=== PATIENT | female | born 1955 | race Caucasian/White ===

== ENCOUNTER 2019-05-28 15:47 | Outpatient (CLI) | payer MEDICARE, OTHER, SELFPAY ==
--- NOTE | 2019-05-28 16:30 | USCV_ITS ---
Marah Benites Age: 64 Gender: F : 1955 Exam Date: 05/28/2019 15:56 Ordering Phys: Bryce Wick DPM Technologist: Renata Sena Exam Location: [facility] Indication: DECREASED PULSES IN FEET RIGHT LEFT Brachial 131.00 mmHg Brachial 129.00 mmHg Pressure (mmHg) Waveform Pressure (mmHg) Waveform 143.00 Above Knee 147.00 148.00 Below Knee 153.00 173.00 APPLICATION DEFENSE MANAGER 170.00 166.00 DPA 123.00 1.32 Ankle/Brachial Index 1.30 74.00 Pre-Exercise Toe Pressure 63.00 0.56 Pre-Exercise Toe/Brachial Index 0.48 FINDINGS Supernormal resting ABIs bilaterally Diminished resting TBIs bilaterally CONCLUSIONS Features of mild to moderate peripheral arterial disease, possibly involving the distal vessels bilaterally. Dr Monisha Dowell MD [facility] (Electronically Signed) Final Date: 28 May 2019 20:31 S
== END 2019-05-28 15:48 | disposition home or self-care (01) ==
LOC: RAD 15:52
PROVIDERS: Family Provider Family Medicine; PCP Plastic Surgery; Visit Provider Podiatrist Foot & Ankle Surgery
DX: R09.89 Other specified symptoms and signs involving the circulatory and respiratory systems (principal)
CPT/HCPCS: 93923

== ENCOUNTER 2020-06-13 06:00 | Outpatient (RCR) | payer MEDICARE, OTHER, SELFPAY | END 2020-06-26 23:59 | disposition home or self-care (01) | LOC: SPT 06:00 | PROVIDERS: Family Provider Family Medicine; Referring Provider Physician Assistant Surgical; Visit Provider Physician Assistant Surgical | DX: M25.512 Pain in left shoulder (principal); M19.012 Primary osteoarthritis, left shoulder | CPT/HCPCS: 97110; 97162 ==

== ENCOUNTER 2020-06-27 06:00 | Outpatient (RCR) | payer MEDICARE, OTHER, SELFPAY | END 2020-07-07 23:00 | disposition home or self-care (01) | LOC: SPT 06:00 | PROVIDERS: Family Provider Family Medicine; Referring Provider Physician Assistant Surgical; Visit Provider Physician Assistant Surgical | DX: M75.102 Unspecified rotator cuff tear or rupture of left shoulder, not specified as traumatic (principal); M19.012 Primary osteoarthritis, left shoulder | CPT/HCPCS: 97110 ==

== ENCOUNTER → 2021-06-08 13:51 | Outpatient (BNVA) | payer MEDICARE, OTHER, SELFPAY | PROVIDERS: Family Provider Family Medicine; PCP Nurse Practitioner Family; Visit Provider Podiatrist Foot & Ankle Surgery | DX: M19.072 Primary osteoarthritis, left ankle and foot (principal) | CPT/HCPCS: 73630 ==

== ENCOUNTER → 2021-07-19 10:40 | Outpatient (BNVA) | payer MEDICARE, OTHER, SELFPAY | PROVIDERS: Family Provider Family Medicine; PCP Nurse Practitioner Family; Visit Provider Nurse Practitioner Family | DX: Z20.822 Contact with and (suspected) exposure to COVID-19 (principal) | CPT/HCPCS: 87635 ==

== ENCOUNTER → 2021-08-21 14:12 | Outpatient (BNVA) | payer MEDICARE, OTHER, SELFPAY | PROVIDERS: Family Provider Family Medicine; PCP Nurse Practitioner Family; Visit Provider Podiatrist Foot & Ankle Surgery | DX: S92.351A Displaced fracture of fifth metatarsal bone, right foot, initial encounter for closed fracture (principal); X58.XXXA Exposure to other specified factors, initial encounter; Z46.89 Encounter for fitting and adjustment of other specified devices; S92.351D Displaced fracture of fifth metatarsal bone, right foot, subsequent encounter for fracture with routine healing; X58.XXXD Exposure to other specified factors, subsequent encounter | CPT/HCPCS: 73630; 97760; L4361 ==

== ENCOUNTER 2021-08-21 15:14 | Outpatient (CLI) | payer MEDICARE, OTHER, SELFPAY | END 2021-08-21 15:15 | disposition home or self-care (01) | LOC: SPT 15:15 | PROVIDERS: Family Provider Family Medicine; PCP Nurse Practitioner Family; Visit Provider Podiatrist Foot & Ankle Surgery | DX: Z46.89 Encounter for fitting and adjustment of other specified devices (principal); S92.351D Displaced fracture of fifth metatarsal bone, right foot, subsequent encounter for fracture with routine healing; X58.XXXD Exposure to other specified factors, subsequent encounter | CPT/HCPCS: 97760; L4361 ==

== ENCOUNTER → 2021-09-12 09:11 | Outpatient (BNVA) | payer MEDICARE, OTHER, SELFPAY | PROVIDERS: Family Provider Family Medicine; PCP Nurse Practitioner Family; Visit Provider Podiatrist Foot & Ankle Surgery | DX: M21.612 Bunion of left foot (principal); S92.354A Nondisplaced fracture of fifth metatarsal bone, right foot, initial encounter for closed fracture; W19.XXXA Unspecified fall, initial encounter; Z87.891 Personal history of nicotine dependence | CPT/HCPCS: 73630; 99213; 99214 ==

== ENCOUNTER → 2021-11-01 09:35 | Outpatient (BNVA) | payer MEDICARE, OTHER, SELFPAY | PROVIDERS: Family Provider Family Medicine; PCP Nurse Practitioner Family; Visit Provider Podiatrist Foot & Ankle Surgery | DX: S92.354A Nondisplaced fracture of fifth metatarsal bone, right foot, initial encounter for closed fracture (principal); W19.XXXA Unspecified fall, initial encounter; M21.612 Bunion of left foot; M79.672 Pain in left foot | CPT/HCPCS: 73630; 99214 ==

== ENCOUNTER → 2022-04-09 08:44 | Outpatient (BNVA) | payer MEDICARE, OTHER, SELFPAY | PROVIDERS: Family Provider Family Medicine; PCP Nurse Practitioner Family; Visit Provider Family Medicine | DX: I10 Essential (primary) hypertension (principal) | CPT/HCPCS: 80053; 80061; 85025 ==

== ENCOUNTER 2022-04-23 10:51 | Outpatient (CLI) | payer MEDICARE, OTHER, SELFPAY ==
--- NOTE | 2022-04-23 11:49 | XR_ITS ---
WS: [id number] XR thoracic spine 3V* [id number] REASON FOR EXAM: progressing right radicular pain T11 - L2 FINDINGS: Severe S-shaped thoracolumbar scoliosis. Thoracic spine convex right. Lumbar spine convex left. Thoracic and lumbar curvatures approximate 80 degrees. Leeds of the thoracic curve at T8. Leeds of the lumbar curve at L3. There are no anomalous vertebrae. Disc spaces are narrowed on the concave side of the scoliotic curves. XR/XR thoracic spine 3V* [id number] IMPRESSION: Severe thoracolumbar scoliosis and degenerative spondylosis.
--- NOTE | 2022-04-23 11:49 | XR_ITS ---
WS: [id number] XR lumbar spine 2-3V* [id number] REASON FOR EXAM: progressive right radicular pain T12 - L2 FINDINGS: Severe rotatory scoliosis of the lumbar spine part of the thoracolumbar scoliosis described on the th oracic spine examination. No significant vertebral body abnormality. Joint space narrowing along the concavity of the lumbar curvature with vertebral body osteophytosis. XR/XR lumbar spine 2-3V* [id number] IMPRESSION: Severe rotatory scoliosis of the lumbar spine as part of the severe thoracolumb ar scoliosis.
== END 2022-04-23 10:52 | disposition home or self-care (01) ==
LOC: RAD 10:54
PROVIDERS: Family Provider Family Medicine; PCP Family Medicine; Visit Provider Family Medicine
DX: M41.85 Other forms of scoliosis, thoracolumbar region (principal); M47.814 Spondylosis without myelopathy or radiculopathy, thoracic region
CPT/HCPCS: 72072; 72100

== ENCOUNTER 2022-05-04 09:17 | Emergency (ER) | payer MEDICARE, OTHER, SELFPAY ==
[2022-05-04 09:57] VITALS: BP 138/78; PULSE 60; RESP 12; TEMP 36.8; O2SAT 96; BMI 23.9
--- NOTE | 2022-05-04 10:20 | XR_ITS ---
WS: [id number] Left knee, 3 views, 05/04/2022 Clinical Data: acute left knee pain Comparison: None. Findings: No fractures or dislocations are seen. There is medial joint compartment narrowing. There is a small calcification and spur adjacent to the medial tibial plateau. The posterior patella shows spurring. T he patella is intact. The soft tissues are unremarkable. XR/XR knee LT 3V* [id number] Impression: Mild osteoarthritis of the left knee Kellgren-Usman Classification: grade 1 (doubtful): doubtful joint space narr owing and possible osteophytic lipping
--- NOTE | 2022-05-04 10:54 | ED_ITS ---
HPI - Extremity Problem General: Chief complaint: Extremity Injury, Lower Stated complaint: left knee injury Time Seen by Provider: 05/04/22 10:52 Source: patient Mode of arrival: ambulatory Limitations: no limitations History of Present Illness: 67-year-old female presents to the ER today for left knee pain x24 hours. Patient reports she was playing pickle ball yesterday when she planted and felt a pop. Patient reports she had immediate pain. She reports it is very tender to walk and bend her knee. She reports mild swelling. She is taking diclofenac at home. She did elevate and ice her knee last night. Patient reports a history of an ACL tear of the right knee but no injuries of the left knee prior to this. Review of Systems General: Reports: 10 or more systems reviewed and unremarkable except in HPI and below PFSH ED PFSH: Medical History Bunion of right foot Hot flashes HTN (hypertension) IBS (irritable bowel syndrome) Neuropathy of both feet Restless leg syndrome Scoliosis Social History Smoking and tobacco status: former smoker Alcohol intake: never Physical Exam Const: COMMON NORMALS: no acute distress, average body habitus, patient oriented x3, no limitations, healthy appearing, alert and well nourished Resp: COMMON NORMALS: normal respiratory effort EFFORT & INSPECTION: Yes able to speak in complete sentences Cardio: COMMON NORMALS: regular rate and regular rhythm RATE: regular rate RHYTHM: regular rhythm Extremity: NARRATIVE EXTREMITY EXAM: Patient is noted to be walking with a limping gait, favoring the left leg. Left knee exam is positive for medial joint line tenderness. There is also swelling noted of this area which is mild. Knee otherwise appears stable. Neuro: COMMON NORMALS: patient oriented x3 SENSORIUM/ORIENTATION: Yes alert Psych: COMMON NORMALS: mental status grossly normal, Normal thought process present and cooperative THOUGHT PROCESS: Normal thought process present Skin: COMMON NORMALS: no rashes or lesions noted and no wounds GENERAL SKIN EXAM: no rashes or lesions noted Course ED course: Patient presents to the ER for left knee pain x24 hours. This occurred while playing pickle ball yesterday. We will get an x-ray at this time. No prior injuries reported. Vital Signs: Vital signs: Vital Signs Temperature 98.2 F 05/04/22 09:57 Pulse Rate 53 L 05/04/22 11:14 Respiratory Rate 16 05/04/22 11:14 Blood Pressure 161/82 05/04/22 11:14 Pulse Oximetry 97 05/04/22 11:14 Oxygen Delivery Me thod 05/04/22 09:57 MDM - Extremity (Nontraumatic) Medical Decision Making X-ray shows mild osteoarthritis of the left knee. Patient does have medial joint line tenderness and some swelling so I cannot rule out a meniscal tear or other tendon/ligament injuries. I would recommend patient get an elastic knee brace and wear that. Rest recommended. Ice elevation and ice recommended. Continue diclofenac for pain. Follow-up with PCP next week if no improvement in symptoms to discuss advanced imaging. Patient verbalized understanding and was in agreement with the treatment plan. Lab Data Radiology Impressions Knee X-Ray 05/04/22 10:20 Impression: Mild osteoarthritis of the left knee Kellgren-Usman Classification: grade 1 (doubtful): doubtful joint space narrowing and possible osteophytic lipping Critical Care Time Critical Care Time: Critical Care Time: No Discharge Plan Discharge Patient Disposition: Home Clinical Impression: Acute pain of left knee Condition: Stable Prescriptions: No Action irbesartan 75 mg tablet 75 mg PO DAILY Qty: 90 3RF metoprolol tartrate 50 mg tablet 50 mg PO DAILY Qty: 90 3RF Rx Instructions: recommend trial of 1/2 twice daily instead of 1 once daily next several weeks (DME) Cam boot to right See Rx Instructions .Route .MEDSUPPLY Qty: 1 0RF Rx Instructions: As directed atorvastatin 10 mg tablet 10 mg PO DAILY Qty: 90 3RF duloxetine 30 mg capsule,delayed release(DR/EC) See Rx Instructions .ROUTE .COMPLEX Qty: 90 3RF Dose Instruction: TAKE 1 CAPSULE BY MOUTH EVERY DAY Rx Instructions: TAKE 1 CAPSULE BY MOUTH EVERY DAY estradiol 0.5 mg tablet 0.5 mg PO DAILY Qty: 90 3RF Rx Instructions: off 5 days; repeat cycle medroxyprogesterone 2.5 mg tablet 2.5 mg PO DAILY Qty: 90 3RF omeprazole 20 mg capsule,delayed release(DR/EC) 20 mg PO DAILY Qty: 90 3RF pregabalin [Lyrica] 50 mg capsule 50 mg PO TID 90 Days Qty: 270 1RF diclofenac sodium 75 mg tablet,delayed release (DR/EC) 75 mg PO BID PRN (Reason: pain) Qty: 120 1RF Discharge Orders: Discharge ED (Routine); Ordered 05/04/22 Ordered By: Earnestine Armando Referrals: Sarah Granger MD [Primary Care Provider] - Discharge Diet: Usual diet Discharge Activity: Increase activity as tolerated Patient Instructions: Opioid Safety, Pain Management Activity Restrictions/Additional Instructions: Recommend rest, ice, elevation. Take anti-inflammatory as discussed. Follow-up with PCP in 3 to 5 days for possible advanced imaging. Increase activity as tolerated. Return to the ER with new or worsening symptoms. Coding Level of Care Code ED Sewing Department Supervisor for Brigette Rodríguez
[2022-05-04 11:14] VITALS: BP 161/82; PULSE 53; RESP 16; O2SAT 97
== END 2022-05-04 11:19 | disposition home or self-care (01) ==
PROVIDERS: Emergency Provider Physician Assistant; PCP Family Medicine
DX: M25.562 Pain in left knee (principal); M17.12 Unilateral primary osteoarthritis, left knee
CPT/HCPCS: 73562; 99283

== ENCOUNTER 2022-05-28 07:43 | Outpatient (CLI) | payer MEDICARE, OTHER, SELFPAY ==
--- NOTE | 2022-05-28 08:00 | MR_ITS ---
WS: [id number] MRI LEFT KNEE HISTORY: Twisting injury. Evaluate for meniscal tear. COMPARISON: Radiographs 05/04/2022 Anterior cruciate ligament: Mild increased signal and mucoid degeneration in the ACL. Posterior cruciate ligament: Intact. Medial collateral ligament: Moderate amount of fluid along the medial collateral ligament but there i s no tear. Posterior lateral corner structures: Intact. Medial menisci: Abnormal signal in the free edge with moderate fraying along the articular surfaces o f the posterior horn. Posterior meniscus is smaller caliber than the anterior horn which is abnormal. Abnormal signal also along the free edge extending to both the superior and inferior surfaces. Abnor mal signal in the meniscal root consistent with a tear. Lateral meniscus: Mild blunting of the free edges of both anterior and posterior horns. Suspect focal tears. Extensor mechanism: Distal quadriceps tendon and patellar tendons are intact. Fluid and soft tissue: Small suprapatellar joint effusion. There is edema in the soft tissues posteri or to the medial femoral condyle which is contiguous with a Menendez's cyst. Menendez's cyst and contiguous soft tissue edema extends over length of 6.8 cm. Osseous and articular structures: Patellofemoral compartment: Moderate chondromalacia patellar cartilage. No marrow edema. Medial compartment: Mild narrowing medial compartment. There is moderate chondromalacia along the fem oral condyle and the tibial plateau. No fracture or marrow edema. Lateral compartment: Mild chondromalacia. Very minimal narrowing of the joint spaces. MR/MR knee LT wo con* [id number] IMPRESSION: 1. Complex tear posterior horn medial meniscus. Tear and abnormal signal invol ves the free edge, superior and inferior articular surfaces and also towards th e meniscal root. Complex meniscal tear. 2. Mild blunting of both the anterior and posterior free edges of the lateral menisci. 3. Large Menendez's cyst. There is additional fluid in the soft tissues posterior to the medial femoral condyle associated with the Menendez's cyst. There may be a partial rupture of the Menendez's cyst due to infiltration of the soft tissues wi th edema. 4. Small joint effusion. 5. Moderate chondromalacia patellofemoral compartment. 6. Moderate chondromalacia medial compartment with mild narrowing of the joint . 7. Mild chondromalacia lateral compartment. 8. Mucoid degeneration ACL.
== END 2022-05-28 07:44 | disposition home or self-care (01) ==
LOC: RAD 07:43
PROVIDERS: PCP Family Medicine; Visit Provider Family Medicine
DX: S83.232A Complex tear of medial meniscus, current injury, left knee, initial encounter (principal); M71.22 Synovial cyst of popliteal space [Baker], left knee; M25.462 Effusion, left knee; M94.262 Chondromalacia, left knee; X58.XXXA Exposure to other specified factors, initial encounter
CPT/HCPCS: 73721

== ENCOUNTER → 2022-06-04 08:27 | Outpatient (BNVA) | payer MEDICARE, OTHER, SELFPAY | PROVIDERS: PCP Family Medicine; Referring Provider Family Medicine; Visit Provider Specialist | DX: S89.92XA Unspecified injury of left lower leg, initial encounter (principal); X50.9XXA Other and unspecified overexertion or strenuous movements or postures, initial encounter; Y93.69 Activity, other involving other sports and athletics played as a team or group; M23.322 Other meniscus derangements, posterior horn of medial meniscus, left knee | CPT/HCPCS: 20610; 73560; 73565; 99204; J1100; J2795; J3301 ==

== ENCOUNTER → 2022-07-30 07:55 | Outpatient (BNVA) | payer MEDICARE, OTHER, SELFPAY | PROVIDERS: PCP Family Medicine; Visit Provider Specialist | DX: M25.562 Pain in left knee (principal) | CPT/HCPCS: 99213 ==

== ENCOUNTER → 2022-09-05 08:39 | Outpatient (BNVA) | payer MEDICARE, OTHER, SELFPAY | PROVIDERS: PCP Family Medicine; Visit Provider Specialist | DX: M17.12 Unilateral primary osteoarthritis, left knee (principal) | CPT/HCPCS: 20610; 99213; J7327 ==

== ENCOUNTER → 2022-09-10 08:13 | Outpatient (BNVA) | payer MEDICARE, OTHER, SELFPAY | PROVIDERS: PCP Family Medicine; Visit Provider Specialist | DX: M65.341 Trigger finger, right ring finger (principal) | CPT/HCPCS: 73130; 99214 ==

== ENCOUNTER 2022-09-11 08:08 | Day surgery (SDC) | payer MEDICARE, OTHER, SELFPAY ==
[2022-09-10 09:29] VITALS: BMI 23.9
[2022-09-11] VITALS (7 sets, daily range): BP systolic 126–168; BP diastolic 69–93; PULSE 51–60; RESP 14–16; TEMP 36.1–36.6; O2SAT 96–100
[2022-09-11] MEDS: CELEcoxib 200 mg Capsule 400 MG PO (09:09)
[2022-09-11] MEDS: acetaminophen 1,000 MG/100 ML PIGGYBACK 400 MG IV (09:09)
[2022-09-11] MEDS: sodium chloride 0.9% 1,000 ML 30 ML IV (09:10)
--- NOTE | 2022-09-11 11:21 | W.PM.OPSUD ---
Surgery/Procedure H&P Update DATE OF PROCEDURE: September 11, 2022 DATE H&P PERFORMED: 09/05/22 H&P UPDATE INFORMATION: I have reviewed H&P completed within last 30 days, I have examined patient prior to procedure, No changes to prior documentation and H&P is in [facility] [place] [facility] EMR on date indicated PREOP DIAGNOSIS: Right ring finger triggering PLANNED PROCEDURE: Operation Date: 09/11/22 09:40 Proposed Procedures p RIGHT RING FINGER TRIGGER FINGER RELEASE [id number],M65.30(Right) - Bela Martinez MD Related Problem List Diagnoses (1) Trigger ring finger of right hand:
--- NOTE | 2022-09-11 12:16 | PM.OP ---
Operative Report Date of procedure: September 11, 2022 Pre-op diagnosis: Right ring finger triggering Post-op diagnosis: Right ring finger triggering Post-op findings: Inflammation right flexor tendons ring finger Procedure done: Right ring finger trigger finger release Specimens removed/disposition: None Surgeon: Bela Martinez Foot Press Operator: None Anesthesia: MAC (With local anesthetic, bupivacaine plain, ASA 2) Estimated blood loss (mL): 1 Tourniquet time (min): 16 (At 250 mmHg) IV fluids (mL): 700 Urine output (mL): 0 (No Gaspar) Complications: None Findings: Thickened A1 mira with slight abrasion to the tendons Condition: stable Disposition: PACU (Then return to same-day surgery for discharge to home) Brief History: This 67-year-old woman presented with complaints of triggering in her right ring finger. The hand was not painful for her, but she did describe frequent triggering which was painful. She stated that she had to straighten the finger every morning, and it would lock up throughout the day. Gripping items caused it to trigger as well. This had been present for several months and was worsening. The patient wished to proceed with operative interventions. Risks and complications were discussed with her in the office, and consents were signed. Procedure: Patient was brought to the operating theater. She was placed on the operating room table. IV sedation was given, and local anesthetic was administered in the form of bupivacaine plain. Patient tolerated it well. The patient asked to have no operative antibiotics, and there was no reason to administer a prophylactic antibiotic for this procedure. A tourniquet was placed high on the arm and was elevated following exsanguination of the arm. Tourniquet time was 16 minutes at 250 mmHg. Surgical pause was performed prior to commencement of the surgical procedure. At the time of the surgical pause we identified the site and side of surgery. We also identified the patient's identity and appropriate administration of IV antibiotics. Following the surgical pause, an incision was made along the distal palmar crease beneath the ring finger. Dissection continued through the skin to the subcutaneous tissues using a scalpel. Blunt dissection was then utilized to spread soft tissues and allow access to the A1 mira. It was then incised longitudinally and sharply using a knife. This was accomplished without difficulty and atraumatically. Once the A1 mira was released, tendons were brought up out of the wound and evaluated. There were no gross masses on the tendons. Tendons were returned to normal position. We then irrigated the wound and subsequently closed it with 3-0 nylon with an interrupted mattress type suture. Following closure of the wound, the wound was injected with 3 mL of bupivacaine into the subcutaneous tissues as a local anesthetic. Sterile dressing was then placed consisting of Dermabond, OpSite, fluffed fluffs, sterile soft roll, and an Jose wrap. The patient was returned to recovery in satisfactory condition. She will be discharged home to follow-up with me in the office. There were no complications and no specimens. Related Problem List Diagnoses (1) Trigger ring finger of right hand:
--- NOTE | 2022-09-11 13:02 | P.ANESASSM_ITS ---
Pre-Anesthetic Assessment Height/Weight: Height 1.6 m Weight 61.235 kg Temp Pulse Resp BP Pulse Ox O2 Del Method O2 Flow Rate 97.7 F 54 L 16 152/91 97 Room Air 6 09/11/22 12:34 09/11/22 12:34 09/11/22 12:34 09/11/22 12:34 09/11/22 12:34 09/11/22 12:34 09/11/22 12:15 Preop Diagnosis: Right ring finger triggering Operation Date: 09/11/22 09:40 Proposed Procedures p RIGHT RING FINGER TRIGGER FINGER RELEASE [id number],M65.30(Right) - Bela Martinez MD Familial anesthetic complications: none Was Beta Reg taken within 24 hours: N/A Was Clonidine taken within 24 hours: N/A Last intake: Intake Last Liquid Date 09/10/22 Last Liquid Time 20:00 Last Solid Date 09/10/22 Last Solid Time 20:00 Social No alcohol and No tobacco Exam alert, oriented x 3, clear to auscultation bilaterally and regular rate & rhythm Airway Submandibular: within normal limits Cervical ROM: within normal limits Mallampati: Class II Dentition: full CV/HEM Hypertension GI Gastroesophageal Reflux Disease Metabolic Hyperlipidemia [facility] [place] Osteoarthritis/DJD Neuropsych Anxiety and Depression Anesthetic Plan ASA status: 2 Anesthesia: Choice Medications/Allergies Home Medications Medication Instructions Recorded Confirmed Last Taken Type Cam boot to right #1 ea 08/21/21 09/10/22 Unknown Rx irbesartan 75 mg tablet 75 mg PO DAILY #90 tabs 12/07/21 09/10/22 09/10/22 Rx metoprolol tartrate 50 mg tablet 50 mg PO DAILY #90 tabs 12/07/21 09/10/22 Unknown Rx atorvastatin 10 mg tablet 10 mg PO DAILY #90 tabs 01/31/22 09/10/22 09/10/22 Rx duloxetine 30 mg capsule,delayed See Rx Instructions .Route 01/31/22 09/10/22 09/10/22 Rx release .COMPLEX #90 caps estradiol 0.5 mg tablet 0.5 mg PO DAILY #90 tabs 01/31/22 09/10/22 09/10/22 Rx medroxyprogesterone 2.5 mg tablet 2.5 mg PO DAILY #90 tabs 01/31/22 09/10/22 09/10/22 Rx omeprazole 20 mg capsule,delayed 20 mg PO DAILY #90 caps 01/31/22 09/10/22 09/10/22 Rx release pregabalin 50 mg capsule (Lyrica) 50 mg PO TID neuropathy 90 days 03/08/22 09/10/22 09/10/22 Rx #270 caps diclofenac sodium 75 mg 75 mg PO BID PRN pain #120 tabs 04/23/22 09/10/22 09/10/22 Rx tablet,delayed release hydrocodone 5 mg-acetaminophen 325 1 tab PO Q4H PRN pain #20 tabs 09/11/22 Unknown Rx mg tablet Allergies Allergy/AdvReac Type Severity Reaction Status Date / Time No Known Allergies Allergy Verified 09/10/22 09:27 Current Medications Generic Name Dose Route Start Last Admin Trade Name Freq PRN Reason Stop Dose Admin Sodium Chloride 1,000 mls @ 30 mls/hr 09/11/22 08:30 09/11/22 09:10 Sodium Chloride 0.9% IV 09/12/22 08:29 30 mls/hr .Q24H JR Administration PFSH Anesthesia Medical History Bunion of right foot Hot flashes HTN (hypertension) IBS (irritable bowel syndrome) Neuropathy of both feet Restless leg syndrome Scoliosis Social History Smoking and tobacco status: former smoker Alcohol intake: never Data Anesthesia Cardiac Studies: No Data to Display
--- NOTE | 2022-09-11 14:48 | ANE.PACU2 ---
Inpatient post-anesthesia follow up: Airway intact: Yes Vital signs: Temperature 97.9 F Pulse Rate 56 Respiratory Rate 16 Blood Pressure 156/87 Pulse Oximetry 98 Oxygen Delivery Me thod Room Air Oxygen Flow Rate 6 Fraction of Inspir ed Oxygen Hydration adequate: Yes Nausea and vomiting: No Pain level: 2 Mental status: Baseline
== END 2022-09-11 13:20 | disposition home or self-care (01) ==
PROVIDERS: PCP Family Medicine; Visit Provider Specialist
PROC: (CPT 26055; principal; 2022-09-11 09:40)
DX: M65.341 Trigger finger, right ring finger (principal); I10 Essential (primary) hypertension; K21.9 Gastro-esophageal reflux disease without esophagitis; E78.5 Hyperlipidemia, unspecified; F41.9 Anxiety disorder, unspecified; F32.A Depression, unspecified; Z79.891 Long term (current) use of opiate analgesic; Z87.891 Personal history of nicotine dependence
CPT/HCPCS: 26055; J0131; J1100; J2250; J2405; J2704; J3490; J7030

== ENCOUNTER → 2022-09-25 10:34 | Outpatient (BNVA) | payer MEDICARE, OTHER, SELFPAY | PROVIDERS: PCP Family Medicine; Visit Provider Nurse Practitioner Family | DX: Z98.890 Other specified postprocedural states (principal) | CPT/HCPCS: 99024 ==

== ENCOUNTER → 2023-05-16 13:00 | Outpatient (BNVA) | payer MEDICARE, OTHER, SELFPAY | PROVIDERS: PCP Family Medicine; Visit Provider Nurse Practitioner Family | DX: L57.0 Actinic keratosis (principal); L81.4 Other melanin hyperpigmentation; L57.8 Other skin changes due to chronic exposure to nonionizing radiation; D69.2 Other nonthrombocytopenic purpura | CPT/HCPCS: 17000; 99203 ==

== ENCOUNTER → 2023-05-28 15:04 | Outpatient (BNVA) | payer MEDICARE, OTHER, SELFPAY | PROVIDERS: PCP Family Medicine; Visit Provider Nurse Practitioner Family | DX: L57.0 Actinic keratosis (principal); B07.8 Other viral warts; L57.8 Other skin changes due to chronic exposure to nonionizing radiation; L82.1 Other seborrheic keratosis; L81.4 Other melanin hyperpigmentation; D69.2 Other nonthrombocytopenic purpura | CPT/HCPCS: 17000; 17110; 99213 ==

== ENCOUNTER → 2023-06-24 15:42 | Outpatient (BNVA) | payer MEDICARE, OTHER, SELFPAY | PROVIDERS: PCP Family Medicine; Visit Provider Specialist | DX: S69.92XA Unspecified injury of left wrist, hand and finger(s), initial encounter; M20.002 Unspecified deformity of left finger(s); W23.0XXA Caught, crushed, jammed, or pinched between moving objects, initial encounter; Y93.69 Activity, other involving other sports and athletics played as a team or group | CPT/HCPCS: 73130; 99214 ==

== ENCOUNTER → 2023-07-02 11:15 | Outpatient (BNVA) | payer MEDICARE, OTHER, SELFPAY | PROVIDERS: PCP Family Medicine; Visit Provider Family Medicine | DX: E05.90 Thyrotoxicosis, unspecified without thyrotoxic crisis or storm (principal); I10 Essential (primary) hypertension | CPT/HCPCS: 80053; 84439; 84443; 85025 ==

== ENCOUNTER 2023-07-08 12:19 | Outpatient (CLI) | payer MEDICARE, OTHER, SELFPAY ==
--- NOTE | 2023-07-08 13:00 | MR_ITS ---
WS: [id number] INDICATION: Prior middle finger injury. TECHNIQUE: MRI of the LEFT hand without gadolinium enhancement. Coronal T1, coronal STIR, axial T1, a xial T2 fat-sat, sagittal T2 fat-sat, axial T1, and coronal 3D FSPGR. FINDINGS: Some images are graded by motion. Degenerative narrowing involves the IP joints worse involving the third DIP. Small erosions involving the metacarpal heads. Moderate degenerative arthritis at the first and fifth MCP joints. Osteopenia. Otherwise mild degenerative narrowing involving the PIP and DIP joints with periarticular edema and small periarticular erosions. No acute fractures. Small amount of tenosynovitis along the flexor tendon sheaths more prominent at t he third fourth and fifth digits. No evidence of drainable abscess or fluid collection. No evidence o f osteomyelitis. No other suspicious findings. IMPRESSION: Some images are degraded by motion. 1. Moderate to severe joint space narrowing third DIP joint with periarticular erosions. 2. No acute fractures. 3. Small amount of fluid and edema along the flexor tendon sheaths more prominent at the third throu gh fifth digits compatible with tenosynovitis. 4. No drainable abscess or fluid collection. No evidence of osteomyelitis. 5. Otherwise degenerative narrowing worse involving the fifth MCP and first MCP joints. 6. Small erosive changes involving the metacarpal heads. 7. Otherwise mild degenerative narrowing involving the PIP and DIP joints with periarticular erosive changes.
== END 2023-07-08 12:20 | disposition home or self-care (01) ==
LOC: RAD 12:19
PROVIDERS: PCP Family Medicine; Visit Provider Specialist
DX: S69.92XA Unspecified injury of left wrist, hand and finger(s), initial encounter (principal); X58.XXXA Exposure to other specified factors, initial encounter
CPT/HCPCS: 73218

== ENCOUNTER 2023-10-24 13:07 | Outpatient (CLI) | payer MEDICARE, OTHER, SELFPAY ==
--- NOTE | 2023-10-24 13:11 | XR_ITS ---
WS: [id number] Exam: XR knee RT 3V* [id number] Date/Time of Exam: 10/24/2023 1:15 PM Reason For Exam: pain right knee Comparison 06/04/2022. No fracture or dislocation. Postoperative changes to suggest ACL reconstruction. There is moderate de generative change of the medial joint compartment. No joint effusion. Mild spurring of the posterior patella. XR/XR knee RT 3V* [id number] IMPRESSION: 1. Moderate degenerative change of the lateral compartment. 2. Postoperative changes suggesting previous ACL reconstruction.
== END 2023-10-24 13:08 | disposition home or self-care (01) ==
LOC: RAD 13:09
PROVIDERS: PCP Family Medicine; Visit Provider Family Medicine
DX: M17.11 Unilateral primary osteoarthritis, right knee (principal)
CPT/HCPCS: 73562

== ENCOUNTER → 2024-01-08 11:19 | Outpatient (BNVA) | payer MEDICARE, OTHER, SELFPAY | PROVIDERS: PCP Family Medicine; Visit Provider Nurse Practitioner Family | DX: L57.0 Actinic keratosis (principal); L82.0 Inflamed seborrheic keratosis; L57.8 Other skin changes due to chronic exposure to nonionizing radiation; L82.1 Other seborrheic keratosis; L81.4 Other melanin hyperpigmentation; D69.2 Other nonthrombocytopenic purpura | CPT/HCPCS: 17000; 17110; 99213 ==

== ENCOUNTER → 2024-07-10 08:23 | Outpatient (BNVA) | payer MEDICARE, OTHER, SELFPAY | PROVIDERS: PCP Family Medicine; Visit Provider Nurse Practitioner Family | DX: L57.8 Other skin changes due to chronic exposure to nonionizing radiation (principal); L82.1 Other seborrheic keratosis; L81.4 Other melanin hyperpigmentation; D69.2 Other nonthrombocytopenic purpura; L57.0 Actinic keratosis | CPT/HCPCS: 17004; 99213 ==

== ENCOUNTER → 2024-10-22 09:27 | Outpatient (BNVA) | payer MEDICARE, OTHER, SELFPAY | PROVIDERS: PCP Family Medicine; Visit Provider Family Medicine | DX: I10 Essential (primary) hypertension (principal); E78.00 Pure hypercholesterolemia, unspecified | CPT/HCPCS: 80053; 80061; 85025 ==

== ENCOUNTER → 2024-11-20 12:34 | Outpatient (BNVA) | payer MEDICARE, OTHER, SELFPAY | PROVIDERS: PCP Family Medicine; Visit Provider Family Medicine | DX: J30.89 Other allergic rhinitis (principal); R09.82 Postnasal drip | CPT/HCPCS: 82785; 86003 ==